=== PATIENT | male | born 1980 | race Caucasian/White ===

== ENCOUNTER 2023-11-06 04:27 | Emergency (ER) | payer OTHER ==
[~2023-11-06] VITALS: Ht 195.6 cm; Wt 125.5 kg
[2023-11-06 05:25] LABS: Chloride 97 mmol/L (98-107); Sodium 140 mmol/L (136-145)
[2023-11-06 05:26] LABS: Anion Gap 6 (5-15); Carbon Dioxide 37 mmol/L (20-30)
[2023-11-06 05:27] LABS: Calcium 9.3 mg/dL (8.7-10.4)
[2023-11-06 05:32] LABS: BUN/Creatinine Ratio 13.4 (10.0-20.0); Blood Urea Nitrogen 13 mg/dL (9-23); Glucose 139 mg/dL (74-106)
[2023-11-06 06:36] LABS: Potassium 2.1 mmol/L (3.5-5.1)
[2023-11-06] MEDS ORDERED: POTASSIUM CHL 20MEQ/100ML 100 ML IV ONE (07:00)
[2023-11-06 07:01] VITALS: PULSE 71; RESP 18; O2SAT 97
[2023-11-06 07:40] VITALS: PULSE 69; RESP 16; O2SAT 97
[2023-11-06 07:54] LABS: Basophils # (auto) 0.1 10 ^3/uL (0-0.2); Basophils % (auto) 1.1 % (0.0-2.0); Eosinophils # (auto) 0.4 10 ^3/uL (0-0.8); Hematocrit 39.4 % (41.0-53.0); Lymphocytes # (auto) 2.4 10 ^3/uL (0.4-5.4); Lymphocytes % (auto) 34.6 % (10.0-50.0); Mean Corpuscular Hemoglobin 27.9 pg (28.0-32.0); Mean Corpuscular Hgb Conc. 32.9 g/dL (32.0-36.0); Mean Corpuscular Volume 84.8 fL (80.0-100.0); Monocytes # (auto) 0.6 10 ^3/uL (0-1.3); Monocytes % (auto) 8.7 % (0.0-12.0); Neutrophils # (auto) 3.6 10 ^3/uL (1.6-8.6); Neutrophils % (auto) 50.6 % (37.0-80.0); Nucleated Red Blood Cells % 0.1 %; Red Blood Cells 4.65 10^6/uL (4.5-5.90); Red Cell Distribution Width 16.2 % (11.8-14.3); White Blood Cell 7.1 10^3/uL (4.4-10.8)
[2023-11-06] MEDS: POTASSIUM CHL 20MEQ/100ML 100 ML IV SCH (08:13)
[2023-11-06 12:28] VITALS: BP 151/89; RESP 18; TEMP 98.1; O2SAT 99
[2023-11-06 12:30] VITALS: PULSE 64
[2023-11-06] MEDS: POTASSIUM EFFERVESENT TAB 25 MEQ PO ONE (12:39)
== END 2023-11-06 07:26 | disposition home or self-care (01) ==
LOC: ER 04:27
DX: E87.6 Hypokalemia (principal); Z88.8 Allergy status to other drugs, medicaments and biological substances
CPT/HCPCS: 36415; 80048; 85025; 93005; 96365; 96366; 99285; J3480